=== PATIENT | male | born 1990 | race Caucasian/White ===

== ENCOUNTER 2017-02-14 19:20 | Emergency (ER) | payer BC, OTHER ==
[~2017-02-14] VITALS: Ht 190.5 cm; Wt 81.6 kg
--- NOTE | 2017-02-14 19:49 | ED Lower Extremity ---
General Chief Complaint: Lower Extremity Stated Complaint: R ANKLE INJ Nursing Triage Note: TWISTED RIGHT ANKLE. Nursing Sepsis Screen: No Definite Risk Source: patient Exam Limitations: no limitations History of Present Illness Time seen by provider: 19:48 Allergies and Home Medications Allergies Coded Allergies: No Known Drug Allergies (Unverified , 02/14/17) Home Medications No Active Prescriptions or Reported Meds Past Jjpjifs-Naygue-Sdtxnw Hx Patient Social History Alcohol Use: Denies Use Recreational Drug Use: No Smoking Status: Never a Smoker 2nd Hand Smoke Exposure: No Recent Foreign Travel: No Contact w/Someone Who Travel: No Recent Infectious Disease Expo: No Recent Hopitalizations: No Immunizations Up To Date Tetanus Booster (TDap): Less than 5yrs PED Vaccines UTD: No Seasonal Allergies Seasonal Allergies: No Physical Exam Vital Signs Vital Sign - Last 12Hours 02/14/17 19:35 Temp 97.7 Pulse 72 Resp 18 B/P (MAP) 148/83 Pulse Ox 99 O2 Delivery Room Air Capillary Refill : Less Than 3 Seconds Progress/Results/Core Measures Results/Orders My Orders Orders - BRYAN CASE Ankle, Right, 3 Views (02/14/17 19:39) Vital Signs/I&O Vital Sign - Last 12Hours 02/14/17 19:35 Temp 97.7 Pulse 72 Resp 18 B/P (MAP) 148/83 Pulse Ox 99 O2 Delivery Room Air Blood Pressure Mean: 104 Departure Impression Impression: Primary Impression: Sprain of ankle, right Disposition: 01 HOME, SELF-CARE Condition: Improved Departure-Patient Inst. Decision time for Depature: 20:26 Referrals: NO,LOCAL PHYSICIAN (PCP/Family) Primary Care Physician Patient Instructions: Ankle Sprain (DC) Add. Discharge Instructions: All discharge instructions reviewed with patient and/or family. Voiced understanding. Tylenol extra strength jhwj-jye-aifojuc as directed for pain. Ibuprofen 800 mg by mouth every 8 hours as needed for pain. Elevate the right ankle on pillows, ice pack for 20 minute intervals as needed. Ankle brace as instructed. Activity as tolerated. Follow-up with your family practitioner for recheck if no improvement in symptoms in 7-10 days. Return to the emergency department for worsened pain, numbness, discoloration, or any other concerns. Scripts No Active Prescriptions or Reported Meds BRYAN CASE Feb 14, 2017 19:49
--- NOTE | 2017-02-14 20:00 | Diagnostic Imaging Report ---
INDICATION: Twisting injury with pain. FINDINGS: Medial, lateral, and posterior malleoli appear intact. There is swelling about the ankle anteriorly seen in the lateral view. No widening of the mortise. The plafond and talar dome are intact. The base of the fifth metatarsal intact. No acute bony abnormality. IMPRESSION: Swelling anteriorly but no acute osseous abnormality demonstrated. Dictated by: Dictated on workstation # [id number]
[2017-02-14 20:30] VITALS: BP 148/83
== END 2017-02-14 20:30 | disposition home or self-care (01) ==
LOC: ER 19:24
DX: S93.401A Sprain of unspecified ligament of right ankle, initial encounter (principal); X50.0XXA Overexertion from strenuous movement or load, initial encounter
CPT/HCPCS: 73610; 99283